=== PATIENT | male | born 1995 | race Two or more races ===

== ENCOUNTER 2017-03-17 15:17 | Emergency (ER) | payer OTHER ==
--- NOTE | 2017-03-17 15:29 | PDOC ---
Rapid Medical Evaluation Time Seen by Provider: 03/17/17 15:28 Medical Evaluation: Allergies Allergy/AdvReac Type Severity Reaction Status Date / Time Fish Containing Products Allergy Verified 10/10/15 23:59 03/17/17 15:28 I have performed a brief in-person evaluation of this patient. The patient presents with a chief complaint of: genital lesion x 2 days, no urethral discharge or dysuria. No sig pmhx Pertinent physical exam findings:will defer genital exam to FT provider I have ordered the following:nothing The patient will proceed to the ED for further evaluation. 03/17/17 15:30
[2017-03-17 15:31] VITALS: BP 113/57; PULSE 92; TEMP 98.9; BMI 24.9
--- NOTE | 2017-03-17 16:00 | PDOC ---
History of Present Illness - General Chief Complaint: Wound Stated Complaint: ABSCESS ON GROIN Time Seen by Provider: 03/17/17 15:28 History Source: Patient Exam Limitations: No Limitations - History of Present Illness Initial Comments: 03/17/17 15:55 21-year-old male presents the ED with complaints of a bump to the base of his penis for the past 4 days. Patient states shaped proximal me 10 days ago when symptoms started, a small pimple was noted. Patient states squeezing which expelled pus in them a resolved but then 2 days later it returned larger and more tender. Patient denies history of MRSA, STD, genital herpes, penile discharge, testicular pain, abdominal pain fever or chills. Timing/Duration: intermittent Severity: mild Associated Symptoms: reports: denies symptoms Past History - Past Medical History Allergies/Adverse Reactions: Allergies Allergy/AdvReac Type Severity Reaction Status Date / Time Fish Containing Products Allergy Verified 03/17/17 15:33 Home Medications: Ambulatory Orders NK [No Known Home Medication] 07/24/15 COPD: No - Suicide/Smoking/Psychosocial Hx Smoking Status: No Smoking History: Current some day smoker Have you smoked in the past 12 months: Yes Number of Cigarettes Smoked Daily: 2 Information on smoking cessation initiated: No 'Breaking Loose' booklet given: 10/04/15 Hx Alcohol Use: No Drug/Substance Use Hx: No Substance Use Type: Marijuana Patient Lives Alone: No Lives with/in: spouse/SO Review of Systems - Review of Systems Able to Perform ROS?: Yes Constitutional: No: Symptoms Reported ABD/GI: No: Symptoms Reported : No: Symptoms Reported Integumentary: Yes: Lumps Neurological: No: Symptoms reported *Physical Exam - Vital Signs Last Vital Signs Temp Pulse Resp BP Pulse Ox 98.9 F 92 H 18 113/57 99 03/17/17 15:29 03/17/17 15:29 03/17/17 15:29 03/17/17 15:29 03/17/17 15:29 - Physical Exam General Appearance: Yes: Nourished, Appropriately Dressed. No: Apparent Distress Gastrointestinal/Abdominal: positive: Soft. negative: Tenderness Male Genitalia: positive: normal genitalia (uncircumcised), other (noted fluctuant 1 cm circular mass to the base of penis in hair. surrounding skin intact.). negative: discharge, testicular tenderness, testicular mass, epididymus tender, hernia Lymphatic: negative: Adenopathy Integumentary: positive: Other Procedures - Incision and Drainage I&D Site: Left: Groin Betadine cleansed: Yes Blade Size: 18 gauge needle Attempts: 1 (drained approx 1 ml of purulent drainage) Medical Decision Making - Medical Decision Making 03/17/17 15:59 Patient with noted fluctuant pustule to the base of his penis laterally on the left. Patient at area drain using 18-gauge needle. Wound culture collected. Patient recommended to apply warm soaks and take Bactrim as prescribed. *DC/Admit/Observation/Transfer Diagnosis at time of Disposition: Abscess of groin, left - Discharge Dispostion Disposition: HOME Condition at time of disposition: Improved - Referrals - Patient Instructions Printed Discharge Instructions: DI for Incision and Drainage of a Skin Abscess Additional Instructions: Please take medication as prescribed until completed. Please apply warm soaks or constant heat 15 minutes 4 times a day for the next 2-3 days. Symptoms do not improve despite above recommendations the next 2 days please return to the nearest ER. - Post Discharge Activity
--- NOTE | 2017-03-20 07:49 | PDOC ---
Patient Follow-up (Call Back) - Post ED Follow - Up Condition at time of discharge: Improved Disposition at time of original discharge: HOME Reason for Call Back: Abnwl. Microbiology (Wound culture preliminary shows strep algalactiae group B and staphylococcal latex coag positive. Patient currently on Bactrim. Will await final report)
--- NOTE | 2017-03-22 07:52 | PDOC ---
Patient Follow-up (Call Back) - Post ED Follow - Up Condition at time of discharge: Improved Disposition at time of original discharge: HOME Reason for Call Back: Abnwl. Microbiology (pt's wound cx on preliminary shows strep agalactiae group b and staphylococcus aureus . Pt currently on bactrim. Will await final report.)
== END 2017-03-17 16:05 | disposition home or self-care (01) ==
LOC: JERFT 15:17
PROC: 0J9C0ZZ Drainage of Pelvic Region Subcutaneous Tissue and Fascia, Open Approach (ICD-10-PCS; principal; 2017-03-17)
DX: L02.214 Cutaneous abscess of groin (principal)
CPT/HCPCS: 10060; 87070; 87186; 87205; 99281-25

== ENCOUNTER 2020-06-02 12:46 | Emergency (ER) | payer OTHER ==
[2020-06-02 12:58] VITALS: BP 110/79; PULSE 89; TEMP 98.9; BMI 26.2
[2020-06-02] MEDS ORDERED: TETRACAINE 0.5% HCL 0.6ML DROPPER.BOTTLE OS ONE (13:24)
[2020-06-02] MEDS ORDERED: FLUORESCEIN NA 1 EA STRIP OS ONE (13:25)
[2020-06-02] MEDS ORDERED: TETRACAINE 0.5% OPHTH SOLN 2 ML BOTTLE ONE (13:34)
[2020-06-02] MEDS ORDERED: FLUORESCEIN NA 1 EA STRIP ONE (13:34)
[2020-06-02] MEDS ORDERED: ERYTHROMYCIN 0.5% OPHTHALMIC OINTMENT 3.5 GM TUBE OS ONE (13:56)
[2020-06-02] MEDS ORDERED: ERYTHROMYCIN 0.5% OPHTHALMIC OINTMENT 3.5 GM TUBE ONE (14:01)
== END 2020-06-02 14:08 | disposition home or self-care (01) ==
LOC: JER 12:46 → JERFT 12:46
DX: S05.02XA Injury of conjunctiva and corneal abrasion without foreign body, left eye, initial encounter (principal)
CPT/HCPCS: 99283-25

== ENCOUNTER 2021-08-11 05:46 | Emergency (ER) | payer OTHER ==
[2021-08-11 06:02] VITALS: BP 104/70; PULSE 83; TEMP 98.2; BMI 25.7
[2021-08-11] MEDS ORDERED: ACETAMINOPHEN 500 MG TABLET (FP) PO ONE (07:29)
[2021-08-11] MEDS ORDERED: ACETAMINOPHEN 325 MG TABLET (FP) ONE (07:42)
== END 2021-08-11 09:41 | disposition home or self-care (01) ==
LOC: JER 05:46
DX: M25.561 Pain in right knee (principal)
CPT/HCPCS: 73564-TC-RT-FY; 99284-25